=== PATIENT | male | born 1995 | race Caucasian/White ===

== ENCOUNTER 2021-10-03 10:38 | Outpatient (REF) | payer BC, SELFPAY ==
[2021-10-03 14:30] LABS: Monotest Negative (Negative)
== END 2021-10-03 10:39 | disposition home or self-care (01) ==
LOC: HO.WFDLDS 10:38
PROVIDERS: Visit Provider Hospitalist
DX: J02.9 Acute pharyngitis, unspecified (principal); R53.83 Other fatigue
CPT/HCPCS: 36415; 86308

== ENCOUNTER 2021-10-10 10:31 | Emergency (ER) | payer BC, OTHER, SELFPAY ==
--- NOTE | ~2021-10-10 | XR_ITS ---
EXAMINATION: XR CHEST CLINICAL INFORMATION: Shortness of breath. Right-sided chest pain. COMPARISON: None TECHNIQUE: 2 views of the chest were obtained. FINDINGS: No significant abnormality is noted involving the heart, lungs, mediastinum, bony thorax or soft tissues. XR/XR chest 2V IMPRESSION: Unremarkable examination.
[2021-10-10 10:35] VITALS: BP 125/63; PULSE 60; RESP 19; TEMP 36.6; O2SAT 99; BMI 19.3
--- NOTE | 2021-10-10 10:44 | ECG_ITS ---
Test Reason : chest pain Blood Pressure : / mmHG Vent. Rate : 059 BPM Atrial Rate : 059 BPM P-R Int : 128 ms QRS Dur : 090 ms QT Int : 404 ms P-R-T Axes : 082 087 060 degrees QTc Int : 399 ms Sinus bradycardia with sinus arrhythmia Otherwise normal ECG No previous ECGs available Referred By: Generic ED Physician Electronically Signed By:Facundo Tran
--- NOTE | 2021-10-10 12:33 | ED_ITS ---
HPI - General Adult General Chief complaint: General Medical Stated complaint: chest pain Time Seen by Provider: 10/10/21 12:32 Source: patient Mode of arrival: ambulatory Limitations: no limitations History of Present Illness HPI narrative: 25 y/o otherwise healthy male presenting to the ER from Urgent Care for ev aluation of right sided chest pain, right sided neck pain, body aches and SOB that started yesterday. He also reports 6 weeks of a sore throat, painful swallowing. He had 2 negative strep throat tests, a negative monospot and a negative COVID test in the last couple of weeks. Today at the Urgent Care EKG showed sinus rhythm w/ sinus arrhythmia. Note reports he was flushed, nervous, fatigued and his presentation borders toxic. Patient denies fever, chills, vomiting, diarrhea, abdominal pain, He has had intermittent nausea with decreased PO intake. His chest pain is in his right upper chest, worse with movement and palpation. No change when he takes a deep breath and it does not radiate. MD complaint: sore throat x 6 weeks, right sided chest pain x1 day Location: mouth and chest Radiation: non-radiation Severity: moderate Quality: aching Pain Consistency: constant Relieving factors: none Exacerbating factors: movement Associated symptoms: chest pain, loss of appetite, malaise and shortness of breath Treatments prior to arrival: none Related Data Home Medications Medication Instructions Recorded Confirmed No Known Home Meds 10/03/21 10/10/21 Allergies Allergy/AdvReac Type Severity Reaction Status Date / Time No Known Allergies Allergy Verified 10/10/21 09:24 Review of Systems Review of Systems: Constitutional: No Fever, No Chills ENT/Mouth: + sore throat, No Rhinorrhea, + Swallowing Difficulty Cardiovascular: + Chest Pain, +SOB, No Orthopnea, No Edema Respiratory: No Cough, No Sputum, No Wheezing, No dyspnea Gastrointestinal: + Nausea, No Vomiting, No Diarrhea, No abdominal Pain Musculoskeletal: No joint pain, + Myalgias Skin: No Skin Lesions, No rash Neuro: No Weakness, No Numbness, No Dizziness, No Headache Psych: + Anxiety/Panic, No Depression Heme/Lymph: No Bruising, No Lymphadenopathy Endocrine: No Polyuria, No Polydipsia PMFSH Social History Social History Alcohol intake: never Patient Tobacco Use Status: Never used Tobacco Use of substances other than those prescribed or required for medical reasons: Yes Substance Use Type: Marijuana Advance Directives: No Advance Directives Information Provided: Yes Physical Exam Vital Signs: Vital Signs: Last Vital Signs Temp 98 F 10/10/21 10:35 Pulse 60 10/10/21 15:02 Resp 17 10/10/21 15:02 BP 120/61 10/10/21 15:02 Pulse Ox 96 10/10/21 15:02 BMI result Body Mass Index 19.3 Appearance: Alert. Oriented X3. No acute distress. Eyes: Pupils equal, round and reactive to light. ENT: Pharynx with moderate generalized posterior erythema, no tonsillar swelling or exudate, uvula midline. Normal TM's bilaterally. Neck: Normal inspection. Neck supple. No LAD. Right SCM is tender without adenopathy. normal ROM CVS: Normal heart rate and rhythm. Pulses normal. Respiratory: No respiratory distress. Breath sounds normal. Right anterior chest wall is tendner Abdomen: Soft and nontender. +BS x4 Skin: Skin warm and dry. Normal skin color. Normal skin turgor. No rashes. Extremities: No lower extremity edema. No calf tenderness. Neuro: Oriented X 3. No motor deficit. No sensory deficit. Anxious Course Course Course Narrative: 25-year-old male presents to the ER from urgent care with 6 weeks of sore throat as well as right-sided chest pain and neck pain that started yesterday along with shortness of breath. He is anxious and nervous. He had a recent negative stress COVID strep and mono test. On arrival to the ER he appears well. His vital signs are normal. His lungs are clear. He does have a family history of PE in his uncle and grandfather. No other risk factors. Will check EKG, chest x-ray, D-dimer, troponin and lab workup. Reevaluation(s) Reevaluation #1: Lab workup was unremarkable including negative D-dimer and negative troponin. His chest x-ray is clear. COVID, Strep tests are negative. Normal results d/w patient and mother at the bedside. They expressed frustration of not finding definite etiology of his symptoms. Explained his reproducible right sided chest pain is most likely costochondritis, recommend anti-inflammatories and modific ations of his work. Recommended [id number] Chloraseptic and Cepacol lozenges for pharyngitis. He will need to follow up back up with his PCP if his symptoms persist. Stable for d/c home. Medical Decision Making Lab Data Result diagrams: 10/10/21 13:40 10/10/21 13:40 Labs: Lab Results 10/10/21 10/10/21 10/10/21 Range/Units 13:40 13:40 13:40 WBC 7.2 (4.8-10.8) X10*3/uL RBC 4.96 (4.60-5.80) X10*6/uL Hgb 15.2 (14.0-18.0) g/dl Hct 44.4 (42.0-52.0) % MCV 89.5 (80.0-98.0) fL MCH 30.6 (27.0-33.0) pg MCHC 34.2 (31.0-36.0) g/dl RDW 12.3 (11.0-16.0) % Plt Count 229 (160-400) X10*3/uL MPV 9.4 (9.4-12.4) fL Immature Gran % (Auto) 0.3 (0.0-0.4) % Neut % (Auto) 50.6 (45-73) % Lymph % (Auto) 36.8 (20-40) % Preston % (Auto) 10.2 (2-11) % Eos % (Auto) 1.5 (0-4) % Baso % (Auto) 0.6 (0-2) % Lymph # (Auto) 2.7 (1.2-4.9) X10*3/uL Preston # (Auto) 0.7 (0.1-1.2) X10*3/uL Eos # (Auto) 0.1 (0.0-0.4) X10*3/uL Baso # (Auto) 0.0 (0.0-0.2) X10*3/uL Abs Immat Gran (auto) 0.02 (0.00-0.03) X10*3/uL Absolute Neuts (auto) 3.7 (2.0-8.3) x10*3/uL Absolute Nucleated RBC 0.000 (0.0-0.012) X10*3/uL Nucleated RBC % (auto) 0.0 (0.0-0.2) /100WBC D-Dimer High Sensitivty < 150 NG/ML Sodium 140 (135-145) mmol/L Potassium 4.5 (3.3-5.1) mmol/L Chloride 105 (96-108) mmol/L Carbon Dioxide 31 H (22-29) mmol/L Anion Gap 9 L (12-20) Creatinine 0.82 (0.5-1.4) mg/dL Estim Creat Clear Calc 104.1 Estimated GFR > 60 Random Glucose 92 (60-115) mg/dL Magnesium 2.1 (1.6-2.6) mg/dL Total Bilirubin 0.6 (0.0-1.0) mg/dL Direct Bilirubin 0.2 (0.0-0.5) mg/dL AST 21 (5-37) U/L ALT 18 (0-40) U/L Alkaline Phosphatase 66 (39-117) U/L Troponin I High Sens (<3.5-35.0) ng/L B-Natriuretic Peptide (<100) pg/mL Total Protein 7.6 (6.5-8.0) g/dL Albumin 4.8 (3.5-5.0) g/dL COVID-19 (MAK) (Negative) COVID-19 Clin Com S. pyogenes GrpA MIGUEL (Negative) 10/10/21 10/10/21 10/10/21 Range/Units 13:40 13:41 14:24 WBC (4.8-10.8) X10*3/uL RBC (4.60-5.80) X10*6/uL Hgb (14.0-18.0) g/dl Hct (42.0-52.0) % MCV (80.0-98.0) fL MCH (27.0-33.0) pg MCHC (31.0-36.0) g/dl RDW (11.0-16.0) % Plt Count (160-400) X10*3/uL MPV (9.4-12.4) fL Immature Gran % (Auto) (0.0-0.4) % Neut % (Auto) (45-73) % Lymph % (Auto) (20-40) % Preston % (Auto) (2-11) % Eos % (Auto) (0-4) % Baso % (Auto) (0-2) % Lymph # (Auto) (1.2-4.9) X10*3/uL Preston # (Auto) (0.1-1.2) X10*3/uL Eos # (Auto) (0.0-0.4) X10*3/uL Baso # (Auto) (0.0-0.2) X10*3/uL Abs Immat Gran (auto) (0.00-0.03) X10*3/uL Absolute Neuts (auto) (2.0-8.3) x10*3/uL Absolute Nucleated RBC (0.0-0.012) X10*3/uL Nucleated RBC % (auto) (0.0-0.2) /100WBC D-Dimer High Sensitivty NG/ML Sodium (135-145) mmol/L Potassium (3.3-5.1) mmol/L Chloride (96-108) mmol/L Carbon Dioxide (22-29) mmol/L Anion Gap (12-20) Creatinine (0.5-1.4) mg/dL Estim Creat Clear Calc Estimated GFR Random Glucose (60-115) mg/dL Magnesium (1.6-2.6) mg/dL Total Bilirubin (0.0-1.0) mg/dL Direct Bilirubin (0.0-0.5) mg/dL AST (5-37) U/L ALT (0-40) U/L Alkaline Phosphatase (39-117) U/L Troponin I High Sens < 3.5 (<3.5-35.0) ng/L B-Natriuretic Peptide 27 (<100) pg/mL Total Protein (6.5-8.0) g/dL Albumin (3.5-5.0) g/dL COVID-19 (MAK) Negative (Negative) COVID-19 Clin Com See Note S. pyogenes GrpA MIGUEL Negative (Negative) ECG Data Attestation: I personally reviewed and interpreted this ECG as follows: Interpretation: sinus bradycardia w/ sinus arrythmia, HR 69 bpm, normal QTc, normal [place] interval. No ST segment elevations or depressions Critical Care Time Critical Care Time Critical Care Time: No Discharge Plan Discharge Clinical Impression: Costochondritis, Pharyngitis Patient Disposition: Home, Self-Care Instructions: Pharyngitis (ED), Costochondritis (ED) Additional Instructions: Your lab workup today was normal. Your chest x-ray were normal. You were negative for COVID and Strep Recommend treatment with prescribed anti-inflammatories for the chest pain Use over the counter Chloraseptic spray, Cepacol lozenges and salt water gargles for your sore throat. Follow up with your Primary Care doctor for futher management. If you develop new or worsening symptoms call 911 or come back to the ER for further evaluation. Prescriptions: No Action No Known Home Meds 0RF
[2021-10-10 13:46] LABS: MANUAL DIFF FLAG NO
[2021-10-10 13:48] LABS: Basophils Percent Auto 0.6 % (0-2); Eosinophils Absolute Auto 0.1 X10*3/uL (0.0-0.4); Eosinophils Percent Auto 1.5 % (0-4); Hematocrit 44.4 % (42.0-52.0); Hemoglobin 15.2 g/dl (14.0-18.0); Imm Gran Abs Auto 0.02 X10*3/uL (0.00-0.03); Imm Gran Pct Auto 0.3 % (0.0-0.4); Lymphocytes Absolute Auto 2.7 X10*3/uL (1.2-4.9); Lymphocytes Percent Auto 36.8 % (20-40); Mean Corpuscular HGB Conc 34.2 g/dl (31.0-36.0); Mean Corpuscular Hemoglobin 30.6 pg (27.0-33.0); Mean Corpuscular Volume 89.5 fL (80.0-98.0); Mean Platelet Volume 9.4 fL (9.4-12.4); Monocytes Absolute Auto 0.7 X10*3/uL (0.1-1.2); Monocytes Percent Auto 10.2 % (2-11); Neutrophils Absolute Auto 3.7 x10*3/uL (2.0-8.3); Neutrophils Percent Auto 50.6 % (45-73); Platelet Count 229 X10*3/uL (160-400); Red Blood Count 4.96 X10*6/uL (4.60-5.80); Red Cell Distribution Width 12.3 % (11.0-16.0); White Blood Count 7.2 X10*3/uL (4.8-10.8)
[2021-10-10 14:00] VITALS: BP 156/80; PULSE 73; RESP 17; O2SAT 98
[2021-10-10 14:01] LABS: D Dimer High Sensitivity < 150 NG/ML
[2021-10-10 14:06] LABS: COVID-19 Test Negative (Negative)
[2021-10-10 14:08] LABS: Alanine Aminotransferase 18 U/L (0-40); Albumin Level 4.8 g/dL (3.5-5.0); Alkaline Phosphatase 66 U/L (39-117); Anion Gap 9 (12-20); Aspartate Amino Transferase 21 U/L (5-37); Bilirubin Direct 0.2 mg/dL (0.0-0.5); Bilirubin Total 0.6 mg/dL (0.0-1.0); Carbon Dioxide 31 mmol/L (22-29); Chloride 105 mmol/L (96-108); Creatinine Clr Calc Pharmacy 104.1; Estimated Glomerular Filt Rate > 60; Glucose Random 92 mg/dL (60-115); Magnesium 2.1 mg/dL (1.6-2.6); Potassium 4.5 mmol/L (3.3-5.1); Sodium 140 mmol/L (135-145); Total Protein 7.6 g/dL (6.5-8.0)
[2021-10-10 14:11] LABS: B Type Natriuretic Peptide 27 pg/mL (<100); Troponin-I High Sensitivity < 3.5 ng/L (<3.5-35.0)
[2021-10-10 14:39] LABS: Strep A Nucleic Acid Negative (Negative)
[2021-10-10 15:02] VITALS: BP 120/61; PULSE 60; RESP 17; O2SAT 96
[2021-10-10 15:48] LABS: Blood Urea Nitrogen 14 mg/dL (9-16); Calcium 10.1 mg/dL (8.4-10.2)
== END 2021-10-10 15:43 | disposition home or self-care (01) ==
PROVIDERS: Physician Assistant; Emergency Provider Emergency Medicine
DX: M94.0 Chondrocostal junction syndrome [Tietze] (principal); J02.9 Acute pharyngitis, unspecified; R06.02 Shortness of breath; Z20.822 Contact with and (suspected) exposure to COVID-19
CPT/HCPCS: 36415; 71046; 80048; 80076; 83735; 83880; 84484; 85025; 85379; 87635; 87651; 93005; 99283; 99284